=== PATIENT | female | born 1985 | race Caucasian/White ===

== ENCOUNTER 2019-01-15 00:45 | Emergency (ER) | payer OTHER ==
[~2019-01-15] VITALS: Ht 160 cm; Wt 54.4 kg
--- NOTE | 2019-01-15 00:49 | NUR ---
PT BBRA FOR BIZARRE BEHAVIOR; PT NOT ANSWERING QUESTION APPROPRIETLY, PT HAS +AH, PT ON MONITOR, VSS, NAD NOTED, PENDING ER PROVIDER EVAL
[2019-01-15] MEDS ORDERED: OLANZAPINE 10 MG VIAL IM ONE ×2 (01:00→01:15)
[2019-01-15 01:20] LABS: BASOPHILS # (AUTO) 0.1 /CMM (0.0-0.2); BASOPHILS % (AUTO) 0.7 % (0.0-2.0); EOSINOPHILS % (AUTO) 3.3 % (0.0-6.0); HEMATOCRIT 42 % (33-45); HEMOGLOBIN 14.3 g/dL (11.5-14.8); LYMPHOCYTES # (AUTO) 2.5 /CMM (0.8-4.8); MEAN CORPUSCULAR HGB CONC 34 g/dl (31.0-36.0); MEAN CORPUSCULAR VOLUME 89 fL (82-100); MONOCYTES # (AUTO) 0.6 /CMM (0.1-1.30); MONOCYTES % (AUTO) 6.1 % (2.0-12.0); NEUTROPHILS # (AUTO) 6.4 /CMM (1.8-8.9); NEUTROPHILS % (AUTO) 64.9 % (43.0-81.0); PLATELET COUNT (AUTO) 385 /CMM (150-450); RED BLOOD CELL COUNT(AUTO) 4.75 MIL/uL (4.0-5.2); WHITE BLOOD COUNT (AUTO) 9.9 K/uL (4.3-11.0)
[2019-01-15 01:29] LABS: APPEARANCE,URINE CLEAR (CLEAR); BILIRUBIN,URINE NEGATIVE (NEGATIVE); BLOOD, URINE NEGATIVE Ery/uL (NEGATIVE); COLOR,URINE YELLOW (YELLOW); KETONES,URINE NEGATIVE (NEGATIVE); LEUKOCYTE ESTERASE ,URINE TRACE (NEGATIVE); NITRITE, URINE NEGATIVE (NEGATIVE); PROTEIN,URINE NEGATIVE (NEGATIVE); UGLUCOSE NEGATIVE (NEGATIVE); UROBILINOGEN,URINE 0.2 EU/dL (0.2)
[2019-01-15 01:31] LABS: CALCIUM, SERUM 9.3 mg/dL (8.5-10.1); CARBON DIOXIDE 28 mmol/L (21-32); CHLORIDE 102 mmol/L (98-107); CREATININE 0.7 mg/dL (0.6-1.3); GLUCOSE 105 mg/dL (74-106); POTASSIUM 4.1 mmol/L (3.5-5.1); SODIUM SERUM 141 mmol/L (136-145); UREA NITROGEN, BLOOD 11 mg/dL (7-18)
[2019-01-15 01:33] LABS: BACTERIA,URINE Few /HPF (None Seen); RBC,URINE 0-2 /HPF (0-2); SQUAMOUS EPITHELIAL CELL,UR Few /HPF (None Seen); URINE AMORPHOUS PHOSPHATES Moderate /HPF (None Seen)
[2019-01-15 01:37] LABS: ALANINE AMINOTRANSFERASE 33 U/L (12-78); ALBUMIN 3.9 g/dL (3.4-5.0); ALCOHOL, BLOOD < 3 mg/dL (0-0); ALKALINE PHOSPHATASE 122 U/L (46-116); ASPARTATE AMINOTRANSFERASE 23 U/L (15-37); BILIRUBIN,TOTAL 0.2 mg/dL (0.2-1.0); SALICYLATE 1.9 mg/dL (2.8-20.0); TOTAL PROTEIN, SERUM 7.8 g/dL (6.4-8.2)
[2019-01-15 01:38] LABS: ACETAMINOPHEN 0 ug/ml (10-30)
--- NOTE | 2019-01-15 02:22 | NUR ---
ART FISH FARMER CALLED; PT SLEEPING; AROUSABLE, PER ART, CALL CRISIS TEAM WHEN PT IS MORE AWAKE AND ALERT.
--- NOTE | 2019-01-15 05:59 | NUR ---
Patient is resting comfortably in bed with eyes closed. Easily aroused. VSS
[2019-01-15 08:55] VITALS: BP 106/63
--- NOTE | 2019-01-15 09:30 | NUR ---
DR GRIFFIN AT TALKING TO THE PATIENT. PATIENT DENIES SI. CALLED FOR BREAKFAST FOOD TRAY.
--- NOTE | 2019-01-15 09:38 | NUR ---
PATIENT IS EATING BREAKFAST AT BS.
--- NOTE | 2019-01-15 10:07 | NUR ---
karla toscano called for eval
--- NOTE | 2019-01-15 10:08 | NUR ---
PATIENT WAS TOLD NOT TO LEAVE THE ER SINCE THE CRISIS TEAM IS ON THEIR WAY. PATIENT REFUSED AND LEFT THE ER. DR GRIFFIN MADE AWARE.
--- NOTE | 2019-01-15 10:09 | NUR ---
Patient eloped from facility. ER MD notified.
== END 2019-01-15 10:16 | disposition left against medical advice (07) ==
LOC: ER 00:50
DX: F29 Unspecified psychosis not due to a substance or known physiological condition (principal); F15.10 Other stimulant abuse, uncomplicated; F41.9 Anxiety disorder, unspecified; F20.9 Schizophrenia, unspecified; R45.1 Restlessness and agitation; R56.9 Unspecified convulsions; F17.200 Nicotine dependence, unspecified, uncomplicated
CPT/HCPCS: 36415; 80048; 80076; 80305; 80307; 80329; 81001; 84484; 84703; 85025; 96372; 99283; A4606; G0480; J3490; 81000-TC

== ENCOUNTER 2019-01-15 10:31 | Emergency (ER) | payer OTHER ==
[~2019-01-15] VITALS: Ht 160 cm; Wt 54.4 kg
--- NOTE | 2019-01-15 10:37 | NUR ---
AAOX3, PATIENT ELOPED EARLIER, CAME BACK TO ER FOR PSYCH EVAL, +AUDITORY HALLUCINATION. RR IS EVEN AND UNLABORED WITH NAD NOTED. SKIN IS WARM AND DRY. AWAITING MD FOR EVAL.
--- NOTE | 2019-01-15 10:40 | NUR ---
CALLED MAURICIO, [facility] [phone]
--- NOTE | 2019-01-15 11:13 | NUR ---
MAURICIO, CERTIFIED FORKLIFT OPERATOR AT BED SIDE FOR EVAL.
--- NOTE | 2019-01-15 11:40 | NUR ---
Food provided at .
--- NOTE | 2019-01-15 12:19 | NUR ---
ТАТЬЯНА, NEGOTIATOR AT TALKING TO PATIENT.
--- NOTE | 2019-01-15 12:20 | NUR ---
PATIENT WAS PROVIDED WITH HOMELESS DETENTION INFORMATION AND TAP UP CARD.
[2019-01-15 12:35] VITALS: BP 122/74
--- NOTE | 2019-01-15 12:35 | NUR ---
Patient discharged to home in stable condition. Written and verbal after care instructions given. Patient verbalizes understanding of instruction.
== END 2019-01-15 12:38 | disposition home or self-care (01) ==
LOC: ER 10:33
DX: F15.10 Other stimulant abuse, uncomplicated (principal); F29 Unspecified psychosis not due to a substance or known physiological condition; R56.9 Unspecified convulsions; F41.9 Anxiety disorder, unspecified; Z59.0 Homelessness
CPT/HCPCS: 99281; A4606; Z7502